=== PATIENT | male | born 1985 | race Caucasian/White ===

== ENCOUNTER 2017-06-02 11:19 | Emergency (ER) | payer SELFPAY ==
[~2017-06-02] VITALS: Ht 185.4 cm; Wt 89.6 kg
[~2017-06-02 11:19] MED LIST: CIPROFLOXACIN500 M1; KEFLEX500 MG PO; MOTRIN800 MG PO; PEN-VEE K,VEET500 MG PO; VICODIN,LORT1 TABLET PO
[2017-06-02] MEDS ORDERED: AMOXICILLIN500 MG PO (11:37)
[2017-06-02 11:43] VITALS: BP 142/83
== END 2017-06-02 11:44 | disposition home or self-care (01) ==
LOC: EME 11:19
DX: J02.9 Acute pharyngitis, unspecified (principal); H92.02 Otalgia, left ear; R53.83 Other fatigue; Z72.0 Tobacco use
CPT/HCPCS: 99281; 99284

== ENCOUNTER 2017-08-05 21:28 | Emergency (ER) | payer SELFPAY ==
[~2017-08-05] VITALS: Ht 185.4 cm; Wt 87.8 kg
[~2017-08-05 21:28] MED LIST changes: +AMOXICILLIN500 MG PO
[2017-08-05] MEDS ORDERED: PERCOCET 5/31 TABLET PO (23:12)
[2017-08-05] MEDS ORDERED: BACTRIM,SEPT1 TABLET PO (23:12)
[2017-08-05] MEDS ORDERED: KEFLEX500 MG PO (23:12)
[2017-08-05 23:50] VITALS: BP 154/90
== END 2017-08-05 23:53 | disposition home or self-care (01) ==
LOC: EME 21:28
DX: L03.115 Cellulitis of right lower limb (principal); Z86.14 Personal history of Methicillin resistant Staphylococcus aureus infection; F17.200 Nicotine dependence, unspecified, uncomplicated
CPT/HCPCS: 87070; 87075; 87077; 87147; 87186; 87205; 99281; 99284; J0295; J7050

== ENCOUNTER 2017-09-28 12:06 | Emergency (ER) | payer SELFPAY ==
[~2017-09-28] VITALS: Ht 185.4 cm; Wt 87.7 kg
[~2017-09-28 12:06] MED LIST changes: +BACTRIM,SEPT1 TABLET PO; +PERCOCET 5/31 TABLET PO
[2017-09-28] MEDS ORDERED: AMOXICILLIN500 MG PO (14:47)
[2017-09-28] MEDS ORDERED: MOTRIN800 MG PO ×2 (14:48→18:01)
[2017-09-28 15:35] LABS: MCH 30.7 PG (29.0-34.0); MCHC 33.7 G/DL (30.0-36.0); MCV 91.1 FL (86-99); MEAN PLAT.VOLUME 8.6 uM^3 (9.0-12.4); PLATELET COUNT 210 K/uL (156-360); RBC DIS.WIDTH-CV 12.7 % (11.8-14.6); RBC DIS.WIDTH-SD 42.5 % (39-53); RED BLOOD COUNT 4.72 M/uL (4.00-5.50); WHITE BLOOD COUNT 14.8 K/uL (4.1-10.2)
[2017-09-28 15:49] LABS: CHLORIDE 100 mEq/L (99-109); POTASSIUM 3.7 mEq/L (3.7-5.4); SODIUM 135 mEq/L (136-147)
[2017-09-28 15:51] LABS: GLUCOSE 123 mg/dL (70-99)
[2017-09-28 15:52] LABS: ANION GAP 11 MEQ/L (2-14)
[2017-09-28 15:53] LABS: TOTAL BILIRUBIN 0.3 mg/dL (0.0-1.0)
[2017-09-28 15:54] LABS: ALKALINE PHOSPHATASE 87 IU/L (3-129)
[2017-09-28 15:55] LABS: GFR ESTIMATE (CALCULATED) > 59 mL/min/
[2017-09-28 15:56] LABS: UREA NITROGEN (BUN) 8 mg/dL (9-23)
[2017-09-28 16:21] LABS: INTERNAL CONTROL VALID? YES; MONOSPOT (MONONUCLEOSIS SEROL) NEGATIVE
[2017-09-28] MEDS ORDERED: CLEOCIN300 MG PO (18:01)
[2017-09-28] MEDS ORDERED: ULTRAM50 MG PO (18:01)
[2017-09-28 18:40] VITALS: BP 118/73
== END 2017-09-28 18:41 | disposition home or self-care (01) ==
LOC: EME 12:06
PROVIDERS: Nurse Practitioner Family
DX: J02.9 Acute pharyngitis, unspecified (principal); R50.9 Fever, unspecified; D72.829 Elevated white blood cell count, unspecified; F17.200 Nicotine dependence, unspecified, uncomplicated
CPT/HCPCS: 70491; 80053; 83605; 85027; 86308; 87040; 87651 90; 99281; 99284; J1100; J1885; J7030